=== PATIENT | male | born 1965 | race Two or more races ===

== ENCOUNTER 2016-07-01 10:43 | Emergency (ER) | payer SELFPAY ==
[2016-07-01] MEDS ORDERED: ACETAMINOPHEN 500 MG TABLET ONE (12:05)
--- NOTE | 2016-07-01 12:40 | RAD ---
CHEST - 2 VIEWS COMPARISON: None. HISTORY: Cough for 3 days. FINDINGS: Views: Frontal and lateral chest Lungs: Normal Heart and vessels: Normal Trachea and bronchi: Normal Mediastinum and shanna: Normal Costophrenic sulci: Normal Chest wall and bones: Normal. Upper abdomen: Normal. IMPRESSION: Negative 2 view chest.
== END 2016-07-01 12:50 | disposition home or self-care (01) ==
LOC: ED 10:43
DX: J06.9 Acute upper respiratory infection, unspecified (principal); R05 Cough; F17.210 Nicotine dependence, cigarettes, uncomplicated